=== PATIENT | female | born 1965 | race Caucasian/White ===

== ENCOUNTER → 2018-01-03 | Outpatient (CLI) | payer OTHER | LOC: M.RAD 07:00 | DX: Z12.31 Encounter for screening mammogram for malignant neoplasm of breast (principal) ==

== ENCOUNTER → 2019-01-07 | Outpatient (CLI) | payer OTHER | LOC: M.RAD 06:49 | DX: Z12.31 Encounter for screening mammogram for malignant neoplasm of breast (principal) ==

== ENCOUNTER → 2019-02-19 | Outpatient (CLI) | payer OTHER ==
--- NOTE | 2019-02-19 16:07 | 2DMMODE ---
[place] [address] 2 D/M-MODE ECHOCARDIOGRAM Name: STEPHYWANDYYUAN DARBY Room: [facility]#: [id number] Admission: 02/19/19 Attend Phys: Alyse Kraus Discharge: Date of : 69 Date of Service: 02/19/19 1607 Report #: [id number] THIS REPORT FOR: //name// APPROVED REPORT Study performed: 02/19/2019 08:18:31 EXAM: Comprehensive 2D, Doppler, and color-flow Echocardiogram Patient Location: Out-Patient BSA: 1.81 HR: 65 bpm BP: 115/72 mmHg Other Information Study Quality: Good Indications Palpitations 2D Dimensions IVSd: 9.78 (7-11mm) LVOT Diam: 20.24 (18-24mm) LVDd: 48.68 mm PWd: 9.20 (7-11mm) Ascending Ao: 27.69 (22-36mm) LVDs: 32.68 (25-40mm) Aortic Root: 28.47 mm Volumes Left Atrial Volume (Systole) LA ESV Index: 16.40 mL/m2 Aortic Valve AoV Peak Nehemiah.: 1.25 m/s AO Peak Gr.: 6.22 mmHg LVOT Max P.67 mmHg AO Mean Gr.: 3.71 mmHg LVOT Mean P.31 mmHg LVOT Max V: 0.82 m/s AO V2 VTI: 30.68 cm LVOT Mean V: 0.53 m/s ANDREZ (VTI): 2.00 cm2 LVOT V1 VTI: 19.06 cm Mitral Valve E/A Ratio: 1.16 MV Decel. Time: 238.27 ms MV E Max Nehemiah.: 0.55 m/s MV PHT: 69.10 ms MVA (PHT): 3.18 cm2 [place] [address] 2 D/M-MODE ECHOCARDIOGRAM Name: WANDY KEYES Room: [facility]#: [id number] Admission: 02/19/19 Attend Phys: Alyse Kraus Discharge: Date of : 69 Date of Service: 02/19/19 1607 Report #: [id number] TDI E/Lateral E': 5.50 E/Medial E': 6.11 Medial E' Nehemiah.: 0.09 m/s Lateral E' Nehemiah.: 0.10 m/s Pulmonary Valve PV Peak Nehemiah.: 0.88 m/s PV Peak Gr.: 3.12 mmHg Tricuspid Valve RAP Estimate: 5.00 mmHg TR Peak Gr.: 17.00 mmHg RVSP: 22.00 mmHg PA Pressure: 22.00 mmHg Left Ventricle The left ventricle is normal size. There is normal LV segmental wall motion. There is normal left ventricular wall thickness. Left ventricular systolic function is normal. The left ventricular ejection fraction is within the normal range. LVEF is 55-60%. The left ventricular diastolic function is normal. Right Ventricle The right ventricle is normal size. The right ventricular systolic function is normal. Atria The left atrium size is normal. The right atrium size is normal. Aortic Valve The aortic valve is normal in structure. No aortic regurgitation is present. There is no aortic valvular stenosis. Mitral Valve The mitral valve is normal in structure. Trace mitral regurgitation. No evidence of mitral valve stenosis. Tricuspid Valve The tricuspid valve is normal in structure. Trace tricuspid regurgitation. Pulmonic Valve The pulmonary valve is normal in structure. Trace pulmonic regurgitation[place] [address] 2 D/M-MODE ECHOCARDIOGRAM Name: WANDY KEYES WILNER Room: [facility]#: [id number] Admission: 02/19/19 Attend Phys: Alyse Kraus Discharge: Date of : 69 Date of Service: 02/19/19 1607 Report #: [id number] The aortic root is normal in size. IVC is normal in size and collapses >50% with inspiration. Pericardium There is no pericardial effusion. <Conclusion> The left ventricle is normal size. There is normal left ventricular wall thickness. Left ventricular systolic function is normal. The left ventricular ejection fraction is within the normal range. LVEF is 55-60%. The left ventricular diastolic function is normal. The right ventricle is normal size. The left atrium size is normal. The aortic valve is normal in structure. The mitral valve is normal in structure. Trace mitral regurgitation. The tricuspid valve is normal in structure. IVC is normal in size and collapses >50% with inspiration. There is no pericardial effusion. There is normal LV segmental wall motion. <ELECTRONICALLY SIGNED> By: Wilfredo Ramirez MD, [facility] 02/19/19 1607 1607 1607 Wilfredo Ramirez MD, FACC /INF
== END ==
LOC: M.CRD 08:00
DX: R00.2 Palpitations (principal); R42 Dizziness and giddiness

== ENCOUNTER → 2020-03-25 | Outpatient (CLI) | payer OTHER | LOC: M.RAD 11:20 | PROVIDERS: ATTEND Obstetrics & Gynecology | DX: Z12.31 Encounter for screening mammogram for malignant neoplasm of breast (principal) ==